=== PATIENT | female | born 1965 | race Caucasian/White ===

== ENCOUNTER 2024-04-28 09:14 | Emergency (ER) | payer MEDICAID ==
[~2024-04-28] VITALS: Ht 160 cm; Wt 83.0 kg
[2024-04-28 09:22] VITALS: O2SAT 99
[2024-04-28 10:01] LABS: BASOPHILS % 0.8 % (0.0-2.0); EOSINOPHILS % 1.9 % (0.0-5.0); HEMATOCRIT. 41.7 % (36.0-48.0); LYMPHOCYTES % 27.6 % (20.0-50.0); MEAN CORPUSCULAR HEMOGLOBIN 31.2 pg (28.0-32.0); MEAN CORPUSCULAR HGB CONC 33.6 g/dL (31.0-37.0); MEAN CORPUSCULAR VOLUME 92.8 fL (81.0-99.0); MEAN PLATELET VOLUME 10.3 fl (7.4-10.4); NEUTROPHILS % 63.7 % (40.0-76.0); PLATELET 253 x1000/uL (130-400); RED BLOOD CELL COUNT 4.49 mill/uL (4.2-5.4); RED CELL DISTRIBUTION WIDTH 13.2 % (11.6-14.6); WHITE BLOOD COUNT 5.6 x1000/uL (4.5-11.0)
[2024-04-28 10:13] LABS: CHLORIDE 103 mEq/L (98-107); POTASSIUM 4.1 mEq/L (3.5-5.1); SODIUM 140 mEq/L (136-145)
[2024-04-28 10:14] LABS: CALCIUM 9.7 mg/dL (8.7-10.4); CARBON DIOXIDE 30 mEq/L (21-32)
[2024-04-28] MEDS: ONDANSETRON 4MG ODT PO ONE (10:18)
[2024-04-28] MEDS: AMLODIPINE 5MG TABLET PO ONE (10:18)
[2024-04-28 10:19] LABS: CREATININE 0.7 mg/dL (0.6-1.0); GLUCOSE 101 mg/dL (70-105); UREA NITROGEN BLOOD 12 mg/dL (9-23)
[2024-04-28] MEDS: ACETAMINOPHEN 325MG TABLET PO ONE (10:19)
[2024-04-28 10:20] LABS: TROPONIN I HIGH SENSITIVITY 13 ng/L (3.0-34)
[2024-04-28 11:40] LABS: TROPONIN I HIGH SENSITIVITY 12 ng/L (3.0-34)
[2024-04-28] MEDS ORDERED: IBUPROFEN 800MG TABLET PO ONE (12:45)
[2024-04-28] MEDS ORDERED: AMLO2.5T45 MT (12:45)
[2024-04-28] MEDS ORDERED: IBUPROFEN 800MG TABLET PO NR (13:00)
[2024-04-28] MEDS: IBUPROFEN 400MG TABLET PO NR (13:02)
[2024-04-28 13:03] VITALS: BP 142/58; PULSE 73; RESP 18; TEMP 98
== END 2024-04-28 13:07 | disposition home or self-care (01) ==
LOC: ER 09:14
DX: R51.9 Headache, unspecified (principal); I10 Essential (primary) hypertension; Z98.890 Other specified postprocedural states; Z90.49 Acquired absence of other specified parts of digestive tract
CPT/HCPCS: 99285; 70450; 71045; 80048; 85025; 85379; 84484; 36415; 93005; Q0162